=== PATIENT | female | born 1965 | race Caucasian/White ===

== ENCOUNTER → 2022-07-29 | Outpatient (CLI) | payer OTHER ==
--- NOTE | 2022-07-29 17:20 | US ---
EXAMINATION TYPE: US kidneys/renal and bladder DATE OF EXAM: 07/29/2022 COMPARISON: NONE CLINICAL HISTORY: 57-year-old female N20.0 KIDNEY STONES. Bilateral flank pain TECHNIQUE: Multiple sonographic images of the kidneys and bladder are obtained. FINDINGS: EXAM MEASUREMENTS: Right Kidney: 11.5 x 5.3 x 5.4 cm Left Kidney: 11.9 x 5.5 x 5.1 cm Right Kidney: wnl Left Kidney: wnl No hydronephrosis on either side. No shadowing calculi or appreciable mass by ultrasound. Bladder: Underdistention of the bladder limits its evaluation. Bilateral Jets seen: No Incidental echogenic liver parenchyma adjacent to the right kidney. IMPRESSION: 1. No hydronephrosis. 2. Incidental hepatic steatosis. Correlate with LFTs, lipid profile, and patient risk factors.
== END | disposition home or self-care (01) ==
LOC: RADUSWWP 14:14
PROVIDERS: ATTEND Family Medicine
DX: N20.0 Calculus of kidney (principal); K76.0 Fatty (change of) liver, not elsewhere classified
CPT/HCPCS: 76770